=== PATIENT | female | born 1950 | race Caucasian/White ===

== ENCOUNTER 2022-07-16 15:46 | Outpatient (CLI) | payer MEDICARE, SELFPAY ==
--- NOTE | ~2022-07-16 | XR_ITS ---
EXAMINATION: XR lumbar spine 2-3V DATE: 07/16/2022 16:28 INDICATION: Chronic low back pain TECHNIQUE: Anteroposterior and lateral views of the lumbar spine, and cone-down lateral view of the l umbosacral junction were obtained. COMPARISON: None. FINDINGS: There are 3 mm of retrolisthesis of L2 on L3, 5 mm of anterolisthesis of L3 on L4, and 4 mm of anterolisthesis of L4 on L5. The vertebral body heights are maintained. There is no fracture. The re is mild to moderate loss of intervertebral disc space height throughout the lumbar spine. Small de generative osteophytes project from the anterior endplates of multiple vertebral bodies. There is sev ere facet joint osteoarthritis of the lower lumbar spine. Surgical clips in the pelvis are suggestive of pelvic lymph node dissection. Calcified atherosclerosis is noted. IMPRESSION: 1. Moderate lumbar spondylosis without acute findings. Reviewed, dictated and finalized at location B. 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
--- NOTE | ~2022-07-16 | XR_ITS ---
EXAMINATION: XR hip RT min 3V w AP pelvis INDICATION: Right hip pain TECHNIQUE: AP view the pelvis and three views of the right hip are obtained. COMPARISON: None available FINDINGS: There is advanced osteoarthritis of the right hip and moderate to severe osteoarthritis of the left hip. No fracture is identified. Surgical clips in the pelvis are consistent with pelvic lymp h node dissection. Moderate lower lumbar spondylosis is noted. IMPRESSION: 1. Advanced osteoarthritis of the right hip. Reviewed, dictated and finalized at location B. 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
== END 2022-07-16 15:47 | disposition home or self-care (01) ==
LOC: CHSIMG 15:55
PROVIDERS: PCP Physician Assistant; Visit Provider Physician Assistant
DX: M54.41 Lumbago with sciatica, right side (principal); M43.06 Spondylolysis, lumbar region; M16.11 Unilateral primary osteoarthritis, right hip
CPT/HCPCS: 72100; 73502

== ENCOUNTER 2024-01-19 14:43 | Outpatient (CLI) | payer MEDICARE, SELFPAY ==
[2024-01-19 15:15] LABS: Basophils Absolute Auto 0.03 K/mm3 (0.00-0.10); Basophils Percent Auto 0.5 % (0.0-1.0); Eosinophils Absolute Auto 0.24 K/mm3 (0.02-0.50); Eosinophils Percent Auto 3.9 % (1.0-6.0); Hematocrit 36.2 % (35.0-42.0); Hemoglobin 11.6 g/dL (11.7-13.8); Immature Granulocyte Absolute 0.03 K/mm3 (0.00-0.00); Immature Granulocyte Percent A 0.5 % (0.0-0.0); Lymphocytes Absolute Auto 1.68 K/mm3 (1.10-4.50); Lymphocytes Percent Auto 27.5 % (18.0-42.0); Mean Corpuscular Hemoglobin 28.4 pg (27.0-31.0); Mean Corpuscular Volume 88.5 fL (78.0-102.0); Mean Platelet Volume 9.7 fl (9.2-11.8); Monocytes Percent Auto 6.5 % (2.0-11.0); Neutrophils Absolute Auto 3.74 K/mm3 (1.70-7.20); Neutrophils Percent Auto 61.1 % (50.0-70.0); Platelet Count Result 267 K/mm3 (150-420); Red Blood Count 4.09 M/mm3 (4.20-5.40); Red Cell Distribution Width 13.7 % (11.6-14.4); White Blood Count 6.1 K/mm3 (4.8-10.8)
[2024-01-19 16:13] LABS: Alanine Aminotransferase 19 U/L (14-59); Albumin Level 3.2 g/dL (3.4-5.0); Alkaline Phosphatase 109 U/L (46-116); Anion Gap 9 mmol/L (4-12); Aspartate Amino Transferase 18 U/L (15-37); Bilirubin,Total 0.2 mg/dL (0.00-1.00); Blood Urea Nitrogen 19 mg/dL (7-18); Calcium 9.3 mg/dL (8.5-10.1); Carbon Dioxide 25 mmol/L (21-32); Chloride 103 mmol/L (98-108); Estimated Glomerular Filt Rate 43; Glucose 80 mg/dL (70-99); Osmolality Calculated 285 mOsm/kg (285-295); Potassium 4.6 mmol/L (3.5-5.1); Sodium 137 mmol/L (136-145); Total Protein 7.1 g/dL (6.4-8.2)
== END 2024-01-19 14:44 | disposition home or self-care (01) ==
LOC: CHSLAB 14:57
PROVIDERS: PCP Physician Assistant; Visit Provider Physician Assistant
DX: R80.8 Other proteinuria (principal); D64.9 Anemia, unspecified; N28.9 Disorder of kidney and ureter, unspecified; R07.81 Pleurodynia; R53.81 Other malaise
CPT/HCPCS: 36415; 80053; 82043; 85025

== ENCOUNTER 2024-01-20 10:50 | Outpatient (CLI) | payer MEDICARE, SELFPAY ==
[2024-01-20 11:01] LABS: Add Urine Microscopic? NO; Appearance Urine Clear (Clear); Bilirubin Urine Negative (Negative); Blood Urine Negative (Negative); Color Urine Light Yellow (Yellow); Glucose Urine UA Negative (Negative); Ketones Urine Negative (Negative); Leukocyte Esterase Ur Negative LEU/UL (Negative); Nitrate Urine Negative (Negative); Protein Urine Negative (Negative); Specific Grav Ur >= 1.030 (1.010-1.020); Urobilinogen Urine 0.2 mg/dL (0.2-1.0); pH Urine 5.5 (5.0-8.0)
[2024-01-20 11:09] LABS: Creatinine Urine 85.67 mg/dL (40-278); MALB Creatinine Ratio 15.1 mg/g (0-30); Microalbumin Urine Random < 13.0 mg/L
== END 2024-01-20 10:51 | disposition home or self-care (01) ==
PROVIDERS: PCP Physician Assistant; Visit Provider Physician Assistant
DX: R80.8 Other proteinuria (principal); D64.9 Anemia, unspecified; N28.9 Disorder of kidney and ureter, unspecified; R07.81 Pleurodynia; R53.81 Other malaise
CPT/HCPCS: 81003; 82043

== ENCOUNTER 2024-09-21 10:16 | Outpatient (CLI) | payer MEDICARE, SELFPAY ==
[2024-09-21 10:30] LABS: Basophils Absolute Auto 0.03 K/mm3 (0.00-0.10); Basophils Percent Auto 0.4 % (0.0-1.0); Eosinophils Absolute Auto 0.25 K/mm3 (0.02-0.50); Eosinophils Percent Auto 3.6 % (1.0-6.0); Hematocrit 37.4 % (35.0-42.0); Hemoglobin 11.5 g/dL (11.7-13.8); Immature Granulocyte Absolute 0.02 K/mm3 (0.00-0.00); Immature Granulocyte Percent A 0.3 % (0.0-0.0); Lymphocytes Percent Auto 21.8 % (18.0-42.0); Mean Corpuscular HGB Conc 30.7 g/dL (32-36); Mean Corpuscular Hemoglobin 28.1 pg (27.0-31.0); Mean Corpuscular Volume 91.4 fL (78.0-102.0); Mean Platelet Volume 9.4 fl (9.2-11.8); Monocytes Absolute Auto 0.68 K/mm3 (0.10-0.90); Monocytes Percent Auto 9.9 % (2.0-11.0); Neutrophils Absolute Auto 4.39 K/mm3 (1.70-7.20); Platelet Count Result 212 K/mm3 (150-420); Red Blood Count 4.09 M/mm3 (4.20-5.40); Red Cell Distribution Width 13.5 % (11.6-14.4); White Blood Count 6.9 K/mm3 (4.8-10.8)
[2024-09-21 11:17] LABS: Alanine Aminotransferase 13 U/L (14-59); Albumin Level 3.1 g/dL (3.4-5.0); Alkaline Phosphatase 114 U/L (46-116); Anion Gap 9 mmol/L (4-12); Aspartate Amino Transferase 14 U/L (15-37); Bilirubin,Total 0.3 mg/dL (0.00-1.00); Blood Urea Nitrogen 15 mg/dL (7-18); Calcium 8.7 mg/dL (8.5-10.1); Carbon Dioxide 25 mmol/L (21-32); Chloride 106 mmol/L (98-108); Estimated Glomerular Filt Rate 36; Folic Acid > 20.0 ng/mL (8.6->20); Glucose 85 mg/dL (70-99); Iron 92 ug/dL (50-170); Osmolality Calculated 289 mOsm/kg (285-295); Percent Iron Saturation 29 % (12-57); Potassium 4.4 mmol/L (3.5-5.1); Sodium 140 mmol/L (136-145); Thyroid Stimulating Hormone 5.59 uIU/mL (0.36-3.74); Total Protein 7.3 g/dL (6.4-8.2); Vitamin B12 353 pg/mL (193-986)
--- OUTSIDE RECORDS SUMMARY | 2024-09-21 11:47 | XMS_ITS | Encounter Summary ---
Author Organization [facility] Address [address] [place] [address] Phone Care Team Providers Care Wooling Machine Operator Name Role Phone No, Physician Primary Care Provider Slade Guerin MD Unavailable [phone] Mina Shaver MD Unavailable [phone] Jovita Puente Primary Care Provider [phone] Encounter Details Date Type Department Care Team (Late st Contact Info) Description 09/10/2017 Orders Only [facility] [address] [place] [address] Slade Guerin MD [address] [address] Social History Tobacco Use Types Packs/Day Years Used Date Smoking Tobacco: Some Days Smokeless Tobacco: Never Alcohol Use Standard Drinks/Week Comments No 0 (1 standard drink = 0.6 oz pur e alcohol) Comments No Sex and Gender Information Value Date Recorded Sex Assigned at Not on file 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 Gender Identity Not on file Sexual Orientation Not on file documented as of this encounter Plan of Treatment Not on file documented as of this encounter Procedures Procedure Name Priority Date/Time Associated Diagnosis Comments SCAN - LABS 09/10/2017 3:07 PM CDT documented in this encounter Results * SCAN - LABS (09/10/2017 3:07 PM CDT) us Slade Guerin MD Final Result documented in this encounter Visit Diagnoses Not on filedocumented in this encounter Care Teams Wooling Machine Operator Relationship Specialty Start Date End Date No, Physician PCP - General 08/25/17 11/30/22 Jovita Puente PA [address] [place] [id number] PCP - General Emergency Medicine 12/01/22 Slade Guerin MD Consulting Physician Infectious Diseases 09/01/17 Mina Shaver MD [address], [place] [address] Surgeon Orthopedic Surgery 11/04/22 documented as of this encounter
--- OUTSIDE RECORDS SUMMARY | 2024-09-21 11:47 | XMS_ITS | Clinical Summary ---
Author Organization [facility] Address [address] [place] [address] Care Team Providers Care Fleet Assistant Name Role Phone Slade Guerin MD Unavailable [phone] Mina Shaver MD Unavailable [phone] Jovita Puente Primary Care Provider [phone] Allergies Active Allergy Reactions Criticality Noted Date Comments Doxycycline Other (See comments) Low 08/25/2017 Kidney pain Iodine Blisters High 01/25/2018 Medications cyclobenzaprine (FLEXERIL) 10 mg tablet Take 1 tablet (10 mg total) by mouth 2 (two) times a day as needed (for legs) Patient reports she is taking once daily 3 Active escitalopram (LEXAPRO) 10 mg tablet Take 1 tablet (10 mg total) by mouth daily 3 Active mirtazapine (REMERON) 7.5 mg tablet Take 1 tablet (7.5 mg total) by mouth nightly 3 Active Narcan 4 mg/actuation spray,non-aeroso l 0 3 Active lmklzdlj-gdv-qtw ic acid-biotin 66.7-1,000 mcg tablet Take 1 tablet/chew tab by mouth daily Active ferrous sulfate 325 mg (65 mg of elemental iron) tabletIndication s:Iron Deficiency Anemia Take 1 tablet (325 mg total) by mouth daily with breakfast Active nitrofurantoin monohydrate (MACROBID) 100 mg capsule Take 1 capsule (100 mg total) by mouth 2 (two) times a day 4 Active diphenoxylate-at ropine (LOMOTIL) 2.5-0.025 mg per tabletIndication s:diarrhea Take 1 tablet by mouth 2 (two) times a day 30 tablet 3 4 Active loperamide (IMODIUM) 2 mg capsule Take 1 capsule (2 mg total) by mouth 4 (four) times a day as needed for diarrhea Taking 8 capsules per day Active gabapentin (NEURONTIN) 400 mg capsule TAKE 1 CAPSULE BY MOUTH THREE TIMES A DAY NEEDED [address] (PROTONIX) 40 mg EC tablet TAKE 1 TABLET BY MOUTH EVERY DAY FOR GERD 4 Active traMADoL (ULTRAM) 50 mg tablet Take by mouth 3 (three) times a day as needed 4 Active Active Problems Problem Noted Date Diagnosed Date Hydronephrosis 05/09/2023 S/P laparoscopic-assisted sigmoidectomy 12/17/19 23 Assessment & Plan (06/10/2023 11:16 AM FIELD SPEC): Over the past few days she was tried a new regimen of paste in tape which seems to have controlled the appliance from falling off and leaking significantly better. She is had years and years of diarrhea which has always been difficult for her to control. We will try to see if we can slow down the stool a little bit if that helps with keeping it off of the skin. Given everything that she is had done in the past I would really like to try and avoid any kind of revision of the ostomy if possible. I am going to see if there is any help with regards to people who could look at some complex stomas to offer her some other thoughts. She is in understanding of the plan. Assessment & Plan (02/20/2023 11:46 AM CDT): Patient will continue diet as tolerates. Continue local ostomy care. Given the overall radiation changes to the pelvis I had initially discussed with her this being likely a more permanent solution. However if she wants to consider reversal I would like to wait at least a year to allow everything that she had going on to heal. She is in understanding. She will call us back for anything further that she would need. Assessment & Plan (12/27/2022 3:57 PM CDT): She continues to progress as I would expect. Continue to encourage p.o. intake. Continue local ostomy care. She is an upcoming cystogram January 01 so hopefully the Ybarra will be removed at that time. We will see her back in a month. Assessment & Plan (12/19/2022 11:40 AM CDT): We will remove the JACQUE drain at bedside today. Continue local ostomy care. We will remove the majority of her midline lizeth as well. We will follow up with Urology to figure out when they want to do the cystogram as well as remove her stents. We will see her back next week to remove the remaining lizeth. She will call us sooner if anything changes. 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 Continue to work with different ostomy appliances to see if they can find a better fitting 1 to limit the skin excoriation. Diet as tolerated. Activity unrestricted. Patient will call us back with any further questions or concerns Assessment & Plan (01/23/2023 10:42 AM CDT): With a better fit appliance hopefully some of the excoriation of the skin and discomfort will improve. Her primary care semi some new labs with her hemoglobin still in the mid sevens. This has been unchanged for the last several draws. It is possible that given the stress of everything it is just taking a while for her to replete her stores. I however will make a referral to hematology to see if they have any other thoughts for the persistent anemia. There is no blood coming from the ostomy appliance so I am not concerned that she is any kind of GI bleed as she was recently scoped as well. We will see her back in 1 month to reassess. History of cervical cancer 12/02/2022 Chronic radiation proctitis 12/02/2022 Depression 12/02/2022 Hydroureteronephrosis 12/02/2022 Abnormal EKG 10/31/2022 Hypertension 10/31/2022 Primary osteoarthritis of right hip 10/17/2022 Bilateral primary osteoarthritis of hip 08/07/19 Cellulitis of leg, right 08/26/2017 Assessment & Plan (09/12/2017 10:36 AM CDT): She was in the hospital with acute cellulitis of the right leg. She responded to IV antibiotics. She is wearing tight jeans and support hose which she normally does because of chronic lymphedema from her pelvic lymph node dissection for cervical cancer many years ago. She did bring in a picture on her phone showing that everything is back to her baseline with chronic lymphedema and minimal erythema. She can follow up here as needed for this problem, otherwise follow-up with primary care. Assessment & Plan (08/29/2017 7:27 PM CDT): The right leg cellulitis appears significantly improved. Continue current therapy. Assessment & Plan (08/26/2017 5:44 AM CDT): Rapidly progressive, likely strep. Responding to cefazolin. Will continue. Blood cultures are in process. Continue to monitor. Hemodynamically stable. P.r.n. Tylenol for fever. Lower extremity Dopplers were ordered to rule out DVT although I suspect it is likely just cellulitis. Will place patient on prophylactic dosing of Lovenox. Chronic acquired lymphedema 08/26/2017 Assessment & Plan (08/26/2017 5:34 AM CDT): Secondary to lymph node dissection from cervical cancer. Stable. Patient wears compression stockings. Cellulitis of right leg without foot Lymphedema of both lower extremities Resolved Problems Problem Noted Date Diagnosed Date Resolved Date Staphylococcus aureus bacteremia 08/25/2017 01/25/2018 Assessment & Plan (09/27/2017 9:45 AM CDT): She had transient associated bacteremia due to methicillin sensitive Staph aureus. Only one of multiple blood cultures was positive. Transthoracic echocardiogram was negative for vegetations. She received two weeks of IV nafcillin which she tolerated well. She had no rash. 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 She controls it with Imodium. If the diarrhea does not return to baseline, we will need to check for C difficile. I would also like her to follow up promptly for any recurrence of fever or chills. 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 She will be in touch with me as needed. Otherwise I think we can consider her treatment complete. Assessment & Plan (09/01/2017 8:40 AM CDT): The second blood culture from admission remains negative. The follow-up blood cultures on antibiotics remain negative. I originally had the impression that 2/2 blood cultures were positive which would be more worrisome for endovascular infection. Her transthoracic echocardiogram was negative, so we will not pursue a transesophageal echocardiogram and, we can continue with plans for two weeks of IV nafcillin. All of this was discussed with the patient. She should follow up with me in the office in about 2 weeks. Sepsis 01/25/2018 Surgical History Surgery Date Site/Laterality Comments HYSTERECTOMY total PELVIC AND PARA-AORTIC LYMPH NODE DISSECTION 06/02/1992 - 06/01/1993 For cervical cancer. COLONOSCOPY JOINT REPLACEMENT 11/04/2022 Right hip BOWEL RESECTION 12/06/2022 with colostomy BLADDER REPAIR 12/06/2022 Medical History Medical History Date Comments Arthritis Cervical cancer (HCC) 1992 Status pos t surgical resection, lymph node dissection, and radiation therapy. 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 Obesity Chronic acquired lymphedema 1992 Cont rolled with leg wraps and lymphedema pumps. Cellulitis of right leg 07/2017 Hypertension Anemia History of stomach ulcers Family History Medical History Relation Name Comments Arthritis Father Heart disease Father Cancer Mother Relation Name Status Comments Father Mother Social History Tobacco Use Types Packs/Day Years Used Date Smoking Tobacco: Former Cigarettes Smokeless Tobacco: Never Tobacco Cessation:Counseling Given: Not Answered Alcohol Use Standard Drinks/Week Comments Yes 0 (1 standard drink = 0.6 oz pur e alcohol) Social Connection and Isolat ion Panel [NHANES] Answer Date Recorded In a typical week, how many times do you talk on the phone with family, friends, or neighbors? More than three times a week 12/02/2022 How often do you get togethe r with friends or relatives? Once a week 12/02/2022 How often do you attend chur ch or cheondoism services? Never 12/02/2022 Do you belong to any clubs o r organizations such as orthodoxy groups, unions, fraternal or athletic groups, or school groups? No 12/02/2022 How often do you attend meet ings of the clubs or organizations you belong to? Never 12/02/2022 Are you , , di vorced, , never , or living with a partner? Never 12/02/2022 AUDIT-C Answer Date Recorded Q1: How often do you have a drink containing alcohol? Never 10/14/2023 Q2: How many drinks containi ng alcohol do you have on a typical day when you are drinking? Patient does not drink Frequency of Binge Drinking Not on file 09/30 Overall Financial Resource Strain (CARDIA) Answe r Date Recorded How hard is it for you to pa y for the very basics like food, housing, medical care, and heating? Not very hard 12/02/2022 Hunger Vital Sign Answer Date Recorded Within the past 12 months, y ou worried that your food would run out before you got the money to buy more. Never true 07/22/19 24 Within the past 12 months, t he food you bought just didn't last and you didn't have money to get more. Never true 07/22/2023 PRAPARE - Transportation Answer Date Re corded In the past 12 months, has l ack of transportation kept you from medical appointments or from getting medications? No 07/2022 In the past 12 months, has l ack of transportation kept you from meetings, work, or from getting things needed for daily living? No 12/02/2022 Housing Stability Vital Sign Answer Marcus e Recorded In the last 12 months, was t here a time when you were not able to pay the mortgage or rent on time? No 12/02/2022 In the last 12 months, how many places have you lived? 2 12/02/2022 In the last 12 months, was t here a time when you did not have a steady place to sleep or slept in a chcf (including now)? No 12/02/2022 Personal Safety Answer Date Recorded Have you ever been in or are you currently in a harmful physical or emotional relationship or is someone making you feel afraid or unsafe? Denies 06/11/2023 Comments No Sex and Gender Information Value Date Recorded Sex Assigned at Not on file Legal Sex Female 6:16 PM FIELD SPEC Gender Identity Not on file Sexual Orientation Not on file Obstetrics History Last Filed Vital Signs Vital Sign Reading Time Taken Comments Blood Pressure 155/102 12/09/2023 10:40 AM CDT Pulse 82 04/13/2024 11:45 AM FIELD SPEC Temperature 36.3 C (97.4 F) 04/13/2024 11:45 AM FIELD SPEC Respiratory Rate 20 04/13/2024 11:4 5 AM FIELD SPEC Oxygen Saturation 99% 04/13/2024 11: 45 AM FIELD SPEC Inhaled Oxygen Concentration - - Weight 84.7 kg (186 lb 12.8 oz) 024 11:45 AM FIELD SPEC Height 165.1 cm (5' 5 ) 04/13/2024 11:4 5 AM FIELD SPEC Body Mass Index 31.09 04/13/2024 11:45 AM FIELD SPEC Plan of Treatment Health Maintenance Due Date Last Done Comments Breast Cancer Screening-Mammogram 1950 Depression Screening 1950 Hepatitis C Screening 1950 Osteoporosis Screening-Bone Density Scan 1950 DTaP/Tdap/Td Vaccine (1 - Tdap) 1963 Hepatitis B Screening 1970 Pneumococcal vaccine 65+ (1 of 1 - PCV) 2002 Zoster Vaccine (1 of 2) 2002 Well Visit 65+ 2017 Fall Risk Assessment 12/15/2023 12/14/2022 Influenza Vaccine (#1) 2024 Colon Cancer Screening-Colonoscopy 12/04/20322022 Colon Cancer Screening-CT Colonography Discontinued Colon Cancer Screening-DNA Stool Discontinued 12/05/19 Colon Cancer Screening-FIT Discontinued 12/04/2022 Colon Cancer Screening-Sigmoidoscopy Discontinued 09/2022 Medical Devices Implanted Type Area Gyroscopic Engineering Technician Device Identifier Shelf Expiration Date Model / Serial / Lot Dep Orthopaedics [facility] [place] 54mm Sector Hip Shell Acetabular Gription Sterile Latex Free [id number] - [id number] Implanted:Qty: 1 on 11/04/2022 by Mina Shaver MD at [facility] Right: Hip [employer] [id number] 07/30/2032 [id number] / / [id number] [employer] [place] 6.5mm 35mm Acetabular Cancellous Screw Bone Sterile 1217-35-500 - [id number] Implanted:Qty: 1 on 11/04/2022 by Mina Shaver MD at [facility] Right: Hip [employer] [id number] 06/01/2032 1217-35-500 / / [id number] [employer] [place] 54mm 36mm Hip Neutral Liner Acetabular Altrx Sterile Latex Free [id number] - [id number] Implanted:Qty: 1 on 11/04/2022 by Mina Shaver MD at [facility] Right: Hip [employer] [id number] 07/01/2027 [id number] / / [id number] [employer] Actis 105mm Collar Hip 5 High Offset Stem Femoral [id number] - [id number] Implanted:Qty: 1 on 11/04/2022 by Mina Shaver MD at [facility] Right: Hip [employer] [id number] 06/01/2032 [id number] / / [id number] [employer] Articul/Branden 36mm Cementless Hip +5mm 12/14 Taper Head Femoral Latex Free [id number] - [id number] Implanted:Qty: 1 on 11/04/2022 by Mina Shaver MD at [facility] Right: Hip [employer] [id number] 07/31/2027 [id number] / / [id number] [employer] [place] Contour Vl 6fr 22-30cm Large Inner Lumen Low Profile Bladder Js Latex Free [id number] - [id number] Implanted:Qty: 1 on 12/02/2022 by Kay Cunningham MD at [facility] Right: Urethra [employer] [place] [id number] 08/22/2025 [id number] / / [id number] [employer] [place] Contour Vl 6fr 22-30cm Large Inner Lumen Low Profile Bladder Js Latex Free [id number] - [id number] Implanted:Qty: 1 on 12/02/2022 by Kay Cunningham MD at [facility] Right: Urethra [employer] [place] [id number] 10/08/2025 [id number] / / [id number] [employer] [place] Contour 7fr 28cm Large Inner Lumen Low Profile Bladder Js Taper Latex Free 180-234 - [id number] Implanted:Qty: 1 on 06/11/2023 by Kay Cunningham MD at [facility] Right: Ureter [employer] [place] 08/28/2025 [id number] / / [id number] Explanted Type Area Gyroscopic Engineering Technician Device Identifier Shelf Expiration Date Model / Serial / Lot [employer] [place] Contour 7fr 28cm Large Inner Lumen Low Profile Bladder Js Taper Latex Free 180-234 - [id number] Explanted:Qty: 1 on 12/02/2022 at [facility] Right: Urethra [employer] [place] [id number] 09/25/2024 [id number] / / [id number] Procedures Procedure Name Priority Date/Time Associated Diagnosis Comments COLONOSCOPY 12/04/2022 12:03 PM CDT from Last 3 Months or Most Recently Relevant to Health Maintenance Results * COLONOSCOPY (12/04/2022 12:03 PM CDT) Anatomical Region Laterality Modality Other Narrative Procedure Note Edward Hood MD - 12/04/2022 12:03 PM CDT [facility] Patient Name: Sandy Reddy Procedure Date: 12/04/2022 12:03 PM Date of : 1950 Admit Type: Inpatient Age: 72 Gender: Female Attending MD: Edward Hood M.D. Room: [facility] 1 Note Status: Finalized Patient Profile: This is a 72 year old female. Patient admitted with the colovesical fistula. Never had colonoscopy. Attempt for colonoscopy. Patient has issues with chronic constipation. Procedure: Colonoscopy Indications: This is the patient's first colonoscopy, AbnormalCT of the GI tract Referring MD: Jovita Puente Providers: Edward Hood M.D. Impression: - Sharp angulation and fixation and fibrotic thickening of the rectum and distal sigmoidcolon. - Otherwise unremarkable limited colonoscopy to the distal transverse colon with no mass lesions notedin the left side of the colon. - No specimens collected. Recommendation: - Continue present medications. - Patient will need full colonoscopy proper colon preparation after repair and surgery for the colovesical fistula - Repeat colonoscopy in 1 year for screeningpurposes. Medicines: Monitored Anesthesia Care Complications: No immediate complications. Estimated Blood Loss: Estimated blood loss: none. Procedure: Pre-Anesthesia Assessment: - Prior to the procedure, a History and Physicalwas performed, and patient medications and allergieswere reviewed. The patient's tolerance of previous anesthesia was also reviewed. The risks andbenefits of the procedure and the sedation options and risks were discussed with the patient. All questions were answered, and informed consent was obtained. Prior Anticoagulants: The patient has taken noanticoagulant or antiplatelet agents. ASA Grade Assessment: III -A patient with severe systemic disease. Afterreviewing the risks and benefits, the patient was deemed in satisfactory condition to undergo the procedure. The benefits, risks and alternatives of theprocedure and sedation were discussed and informed consentwas obtained. All questions were answered. Please referto the signed informed consent document in the medical record. The bowel preparation used was Miralax via single dose instruction. The scope was passed under direct vision. The Endoscope [id number] was introduced through the anus and advanced to the the transverse colon. The scope was passed under direct vision. The Infrared hemorrhoid furniture delivery driver [id number] was introduced through the and advanced tothe. The benefits, risks and alternatives of theprocedure and sedation were discussed and informed consentwas obtained. All questions were answered. Please referto the signed informed consent document in the medical record. The quality of the bowel preparation was inadequate. Bowel prep was administered using asplit dose. Findings: The perianal and digital rectal examinations were normal. Hardimpacted solid stool was encountered in the rectum and this was manually disimpacted and removed The scope introduced and advanced to the transverse colon. Colon preparation was inadequate as we go proximally in the colon. Theentire visualized part of the colon were unremarkable. No diverticularchanges noted. No inflammatory changes noted. No polyps and no mass lesions noted. There was sharp angulation and fixation in the distal sigmoid colon in the rectal sigmoid area likely from her previous radiation treatment. The rectal wall was also hard fibrotic. Electronically signed by Edward Hood M.D. Edward Hood M.D. 12/04/2022 1:22:40 PM Number of Addenda: 0 Note Initiated On: 12/04/2022 12:03 PM Procedure Code(s): --- Professional --- 28197, Colonoscopy, flexible; diagnostic, including collection of specimen(s) by brushing or washing, when performed (separateprocedure) Diagnosis Code(s): --- Professional --- R93.3, Abnormal findings on diagnostic imaging of other parts of digestive tract CPT copyright 2020 [employer]. All rights reserved. The codes documented in this report are preliminary and upon recovery room rn reviewmay be revised to meet current compliance requirements. Recognized by the [employer] [employer] for promoting quality in endoscopy Edward Hood MD ENDOSCOPY PROCEDURES Final Result from Last 3 Months or Most Recently Relevant to Health Maintenance Insurance MEDICARE [employer] [place] [employer] [place] [employer] [place] MEDICARE SUPPLEMENT MEDICARE [facility] MEDICARE SUPPLEMENT Advance Directives For more information, please contact: [phone] * Full Code (Latest Code Status on File) Date Activated Date Inactivated Comments 12/04/2022 11:52 AM 12/14/2022 8:18 PM * Full Code Date Activated Date Inactivated Comments 12/02/2022 1:31 AM 12/04/2022 11:52 AM * Full Code Date Activated Date Inactivated Comments 11/04/2022 11:57 AM 11/04/2022 8:16 PM * Full Code Date Activated Date Inactivated Comments 01/25/2018 1:08 PM 01/26/2018 4:50 PM * Full Code Date Activated Date Inactivated Comments 08/26/2017 5:33 AM 09/01/2017 10:32 PM Care Teams Fleet Assistant Relationship Specialty Start Date End Date Jovita Puente PA [address] [place] [address] PCP - General Emergency Medicine 12/01/22 Slade Guerin MD Consulting Physician Infectious Diseases 09/01/17 Mina Shaver MD [address] [place] [address] DR FAM [address] [place] [id number] Surgeon Orthopedic Surgery 11/04/22
--- OUTSIDE RECORDS SUMMARY | 2024-09-21 11:47 | XMS_ITS | Referral Summary ---
Author Organization [facility] Address [address] [place] [address] Care Team Providers Care Slab Installer Name Role Phone Slade Guerin MD Unavailable [phone] Mina Shaver MD Unavailable [phone] Jovita Puente Primary Care Provider [phone] Allergies Active Allergy Reactions Criticality Noted Date [...] 4 mg/actuation spray,non-aeroso l 0 3 Active nfspbinq-oou-tpe ic acid-biotin 66.7-1,000 mcg tablet Take 1 [...] 23 Assessment & Plan (06/10/2023 11:16 AM HOSPICE PLAN ADMINISTRATOR): Over the past few days she was [...] office in about 2 weeks. Sepsis 01/25/2018 Social History Tobacco Use Types Packs/Day Years [...] 12/02/2022 How often do you attend [employer] or oriental orthodox services? Never 12/02/2022 Do you belong to any clubs o r organizations such as synagogue groups, unions, fraternal or athletic groups, or [...] place to sleep or slept in a retirement (including now)? No 12/02/2022 Personal Safety Answer Date Recorded Have you ever been in or are you currently in a harmful physical or emotional relationship or is someone making you feel afraid or unsafe? Denies 06/11/2023 Comments No Sex and Gender Information Value Date Recorded Sex Assigned at Not on file Legal Sex Female 6:16 PM HOSPICE PLAN ADMINISTRATOR Gender Identity Not on file Sexual Orientation Not on file Last Filed Vital Signs Vital Sign Reading Time Taken Comments Blood Pressure 155/102 12/09/2023 10:40 AM CDT Pulse 82 04/13/2024 11:45 AM HOSPICE PLAN ADMINISTRATOR Temperature 36.3 C (97.4 F) 04/13/2024 11:45 AM HOSPICE PLAN ADMINISTRATOR Respiratory Rate 20 04/13/2024 11:4 5 AM HOSPICE PLAN ADMINISTRATOR Oxygen Saturation 99% 04/13/2024 11: 45 AM HOSPICE PLAN ADMINISTRATOR Inhaled Oxygen Concentration - - Weight 84.7 kg (186 lb 12.8 oz) 024 11:45 AM HOSPICE PLAN ADMINISTRATOR Height 165.1 cm (5' 5 ) 04/13/2024 11:4 5 AM HOSPICE PLAN ADMINISTRATOR Body Mass Index 31.09 04/13/2024 11:45 AM HOSPICE PLAN ADMINISTRATOR Plan of Treatment Not on file Medical Devices Implanted Type Area Cook Cashier Food Prep Device Identifier Shelf Expiration Date Model / Serial / Lot [employer] [place] 54mm Sector Hip Shell Acetabular Gription Sterile Latex Free [id number] - [id number] Implanted:Qty: 1 on 11/04/2022 by Mina Shaver MD at [facility] Right: Hip [employer] [id number] 07/30/2032 [id number] / / [id number] [employer] [place] 6.5mm 35mm Acetabular Cancellous Screw Bone Sterile 1217-35-500 - [id number] Implanted:Qty: 1 on 11/04/2022 by Mina Shaver MD at [facility] Right: Hip [employer] [id number] 06/01/2032 1217-35-500 / / [id number] [employer] [place] 54mm 36mm Hip Neutral Liner Acetabular Altrx Sterile Latex Free [id number] - [id number] Implanted:Qty: 1 on 11/04/2022 by Mina Shaver MD at [facility] Right: Hip [employer] [id number] 07/01/2027 [id number] / / [id number] [employer] Actis 105mm Collar Hip 5 High Offset Stem Femoral [id number] - [id number] Implanted:Qty: 1 on 11/04/2022 by Mina Shaver MD at [facility] Right: Hip [employer] [id number] 06/01/2032 [id number] / / [id number] [employer] Articul/Branden 36mm Cementless Hip +5mm 05/15 Taper Head Femoral Latex Free [id number] - [id number] Implanted:Qty: 1 on 11/04/2022 by Mina Shaver MD at [facility] Right: Hip [employer] [id number] 07/31/2027 [id number] / / [id number] [employer] [place] Contour Vl 6fr 22-30cm Large Inner Lumen Low Profile Bladder Js Latex Free [id number] - [id number] Implanted:Qty: 1 on 12/02/2022 by Kay Cunningham MD at [facility] Right: Urethra [employer] [place] [id number] 08/22/2025 [id number] / / [id number] [employer] Francisco Contour Vl 6fr 22-30cm Large Inner Lumen Low Profile Bladder Js Latex Free [id number] - [id number] Implanted:Qty: 1 on 12/02/2022 by Kay Cunningham MD at [facility] Right: Urethra [employer] [place] [id number] 10/08/2025 [id number] / / [id number] [employer] Francisco Contour 7fr 28cm Large Inner Lumen Low Profile Bladder Js Taper Latex Free 180-234 - [id number] Implanted:Qty: 1 on 06/11/2023 by Kay Cunningham MD at [facility] Right: Ureter [employer] Francisco 08/28/2025 [id number] / / [id number] Explanted Type Area Cook Cashier Food Prep Device Identifier Shelf Expiration Date Model / Serial / Lot [employer] Francisco Contour 7fr 28cm Large Inner Lumen Low Profile Bladder Js Taper Latex Free 180-234 - [id number] Explanted:Qty: 1 on 12/02/2022 at [facility] Right: Urethra [employer] [id number] 09/25/2024 [id number] / / [id number] Procedures Procedure Name Priority Date/Time Associated Diagnosis Comments COLONOSCOPY 12/04/2022 12:03 PM CDT from Last 3 Months or Most Recently Relevant to Health Maintenance Results * COLONOSCOPY (12/04/2022 12:03 PM CDT) Anatomical Region Laterality Modality Other Narrative Procedure Note Edward Hood MD - 12/04/2022 12:03 PM CDT [facility] Patient Name: Sandy Saenz Procedure Date: 12/04/2022 12:03 PM Date of : 1950 Admit Type: Inpatient Age: 72 Gender: Female Attending MD: Edward Hood M.D. Room: [facility] ENDOSCOPY ROOM 1 Note Status: Finalized Patient [...] passed under direct vision. The Endoscope [id number] was introduced through the anus and advanced to the the transverse colon. The scope was passed under direct vision. The Infrared hemorrhoid global sales manager [id number] was introduced through the and advanced tothe. [...] 12:03 PM Procedure Code(s): --- Professional --- 00777, Colonoscopy, flexible; diagnostic, including collection of specimen(s) by brushing or washing, when performed (separateprocedure) Diagnosis Code(s): --- Professional --- R93.3, Abnormal findings on diagnostic imaging of other parts of digestive tract CPT copyright 2020 [place] [employer]. All rights reserved. The codes documented in this report are preliminary and upon senior materials analyst reviewmay be revised to meet current compliance requirements. Recognized by the [place] [employer]astrointestinal [employer] for promoting quality in endoscopy Edward Hood MD ENDOSCOPY PROCEDURES Final Result from Last 3 Months or Most Recently Relevant to Health Maintenance Insurance MEDICARE [facility] MEDICARE [facility] MEDICARE SUPPLEMENT MEDICARE [facility] MEDICARE SUPPLEMENT Advance Directives For more information, please contact: [phone] * Full Code (Latest Code Status on [...] 5:33 AM 09/01/2017 10:32 PM Care Teams Slab Installer Relationship Specialty Start Date End Date Jovita Puente PA [address] [place] [address] PCP - General Emergency Medicine 12/01/22 Slade Guerin MD Consulting Physician Infectious Diseases 09/01/17 Mina Shaver MD [address] [facility] [address] FAM [address] [place] [address] Surgeon Orthopedic Surgery 11/04/22
--- OUTSIDE RECORDS SUMMARY | 2024-09-21 11:47 | XMS_ITS ---
Author Organization Unknown Address [address] [place] [phone] Phone Care Team Providers Care Retirement Assistant Name Role Phone CARLOS ALBERTO HUSTON PA-C Attending Unavailable Results CBC W/ DIFF - Collect Date/T milena: 01/15/2024 11:00 [facility] ID: [id number] [place] [address], [phone] LOINC: 08640-3 Test Value Unit Reference Range Code Code System Flag WBC 12.6 10^3uL L=4.8 H=10.8 H RBC 4.14 10^6uL L=4.20 H=5.40 L HEMOGLOBIN 11.5 g/dL L=12.0 H=16.0 718-7 LOINC L HEMATOCRIT 37.4 VOL% L=37.0 H=47.0 4544-3 LOINC MCV 90.3 fL L=81.0 H=99.0 MCH 27.8 pg L=27.0 H=32.0 MCHC 30.7 g/dL L=32.0 H=36.0 L PLATELETS 248 10^3uL L=100 H=400 19294-6 LOINC RDW 13.9 % L=11.7 H=15.5 %GRAN 80.9 % L=40.0 H=70.0 55412-8 LOINC H %LYMPH 10.4 % L=20.0 H=45.0 736-9 LOINC L %MONO 6.5 % L=2.0 H=10.0 35502-3 LOINC %EOS 1.6 % L=0.0 H=6.0 713-8 LOINC %BASO 0.2 % L=0.0 H=3.0 706-2 LOINC #NEUT 10.2 10^3uL L=1.9 H=7.6 98951-6 LOINC H #LYMPH 1.3 10^3uL L=0.9 H=4.9 76508-2 LOINC #MONO 0.8 10^3uL L=0.1 H=0.9 29255-3 LOINC #EOS 0.2 10^3uL L=0.0 H=0.6 712-0 LOINC #BASO 0.03 10^3uL L=0.00 H=0.10 59507-3 LOINC #IM GRANS 0.1 10^3uL L=0.0 H=7.0 22625-3 LOINC %IM GRANS 0.4 % L=0.0 H=5.0 76225-8 LOINC %NRB 0.0 L=0.0 H=0.2 71194-6 LOINC #NRB 0.000 L=0.000 H=0.012 48011-3 LOINC MANUAL DIFF NOT INDICATED RBC MORPH NOT INDICATED COMPREHENSIVE METABOLIC PANE L - Collect Date/Time: 01/15/2024 11:00 [facility] ID: [id number] [address] [place], [place], [phone] LOINC: 68359-8 Test Value Unit Reference Range Code Code System Flag FASTING YES BUN 20 mg/dL L=7 H=20 3094-0 LOINC CREATININE 1.20 mg/dL L=0.52 H=1.04 2160-0 LOINC H GLUCOSE 99 mg/dL L=74 H=106 2345-7 LOINC SODIUM 138 mmol/L L=132 H=144 2951-2 LOINC POTASSIUM 4.2 mmol/L L=3.5 H=5.1 2823-3 LOINC CHLORIDE 105 mmol/L L=98 H=107 2075-0 LOINC CO2 22.0 mmol/L L=22.0 H=30.0 2028-9 LOINC ANION GAP 15 L=10 H=20 40136-3 LOINC OSMOLALITY 289 mOs/kG L=280 H=296 16734-1 LOINC BUN/CREAT 16.7 3097-3 LOINC CALCIUM 9.7 mg/dL L=8.3 H=10.5 79945-0 LOINC AST 24 U/L L=15 H=46 1920-8 LOINC ALT 17 U/L L=9 H=72 1742-6 LOINC ALKALINE PHOS 96 U/L L=38 H=126 6768-6 LOINC TOTAL BILI 0.5 mg/dL L=0.2 H=1.3 1975-2 LOINC ALBUMIN 4.4 G/dL L=3.5 H=5.0 1751-7 LOINC TOTAL PROTEIN 8.5 g/L L=6.3 H=8.2 2885-2 LOINC H A/G RATIO 1.1 03635-0 LOINC AGE 73 65839-3 LOINC eGFR NON-AFR 47 ml/min eGFR AFR AMER 57 ml/min VITAMIN B-12 - Collect Date/ Time: 01/15/2024 11:00 [facility] ID: [id number] [address] [place] [address], [phone] LOINC: 2132-9 Test Value Unit Reference Range Code Code System Flag VITAMIN B12 504 pq/mL L=239 H=931 FOLIC ACID (SERUM) - Collect Date/Time: 01/15/2024 11:00 [facility] ID: [id number] [address] [place] [address], [phone] LOINC: 2284-8 Test Value Unit Reference Range Code Code System Flag FOLATE 19.6 ng/mL L=2.7 H=20.0 2284-8 LOINC IRON PANEL - Collect Date/Ti me: 01/15/2024 11:00 [facility] ID: [id number] [address] [place] [address], [phone] LOINC: Test Value Unit Reference Range Code Code System Flag IRON 74 ug/dL L=37 H=170 2498-4 LOINC TIBC 354 ug/dL L=265 H=497 2500-7 LOINC %SATURATION 21 % L=13 H=45 2708-6 LOINC FERRITIN - Collect Date/Time : 01/15/2024 11:00 [facility] ID: [id number] [address] [place] [address], [phone] LOINC: 2276-4 Test Value Unit Reference Range Code Code System Flag FERRITIN 31.4 ng/mL L=11.1 H=264 2276-4 LOINC 25 HYDROXY VITAMIN D - Colle ct Date/Time: 01/15/2024 11:00 [facility] ID: [id number] [address] [place] [address], [phone] LOINC: Test Value Unit Reference Range Code Code System Flag VITAMIN D 30.5 ng/ml L=30.0 H=100 83609-7 LOINC THYROID CASCADE PROFILE REF - Collect Date/Time: 01/15/2024 11:00 [facility] ID: [id number] [address] [place] [address], [phone] LOINC: 03032-4 Test Value Unit Reference Range Code Code System Flag TSH 6.230 0.450-4.500 42277-0 LOINC H T4,Free (Direct) 0.95 0.82-1.77 3024-7 LOINC Thyroid Peroxidase (TPO)Ab 285 0-34 8099-4 LOINC H Interpretive Comment COMMENT CHEST 2V - Completed: 2023 11:13 LOINC: EXAM DESCRIPTION: CHEST 2V REASON FOR STUDY: previous smoker quit 1 year ago crackling in lungs 6 weeks ago (resolved) cough 3 weeks lethargic/weakness 6 weeks chronic lymphedema hx of cervical and lymph cancer and radiation Duration: 6 weeks TECHNIQUE: There are 2 radiographic view(s) of the chest. COMPARISON: No prior. FINDINGS: LUNGS: Hyperinflation of the lungs indicative of emphysematous change. No confluent infiltrate or effusion. Costophrenic angles are sharp. HEART/MEDIASTINUM: Senescent change of the aorta. Otherwise, normal cardiomediastinal silhouette. LINES/TUBES: None. BONES: Moderate spondylosis thoracic spine. IMPRESSION: Emphysematous change with no acute infiltrate. THIS IS AN ELECTRONICALLY VERIFIED FINAL REPORT 01/17/2024 6:14 PM - Electronically signed by Howie Rogers M.D. MJ: JORJE Report ID: [id number] Reading Location: [id number] Social History Type Status Start Date End Date Code Code Syst em Sex Female Hospital Discharge Instructions Should you have any questions prior to discharge, please contact a member of your healthcare team. If you have left the hospital and have any questions, please contact your primary care physician. Reason For Referral No Data Found Plan of Treatment No Data Found Encounters Encounter Diagnosis Start Date Code Code Sys tem Anemia, unspecified 01/15/2024 SNOMED-C T Personal Care Team Section Performer Name Performer Role Active Date Inactive Da MICHAEL Jones PCP - Primary care physician 2023-01-30 2023-01-30 ROBEL CARCAMO PCP - Primary care physician Imaging Narrative Notes
[2024-09-23 01:54] LABS: Vitamin D 25 Hydroxy 29 ng/mL (30-100)
== END 2024-09-21 10:17 | disposition home or self-care (01) ==
LOC: CHSLAB 10:21
PROVIDERS: PCP Family Medicine; Visit Provider Family Medicine
DX: F32.1 Major depressive disorder, single episode, moderate (principal); D64.9 Anemia, unspecified; E55.9 Vitamin D deficiency, unspecified
CPT/HCPCS: 36415; 80053; 82306; 82607; 82746; 83540; 83550; 84443; 85025

== ENCOUNTER 2024-11-02 08:41 | Outpatient (CLI) | payer MEDICARE, SELFPAY ==
--- OUTSIDE RECORDS SUMMARY | 2024-11-02 08:46 | XMS_ITS ---
Author Organization Unknown Address [address] [place] [phone] Phone Care Team Providers Care Spa Host Name Role Phone CARLOS ALBERTO HUSTON PA-C Attending Unavailable Results CBC W/ DIFF - Collect Date/T milena: 01/15/2024 11:00 [facility] [id number] [place] [address], [phone] LOINC: 45254-2 Test Value Unit Reference Range Code Code System Flag WBC 12.6 10^3uL L=4.8 H=10.8 H RBC 4.14 10^6uL L=4.20 H=5.40 L HEMOGLOBIN 11.5 g/dL L=12.0 H=16.0 718-7 LOINC L HEMATOCRIT 37.4 VOL% L=37.0 H=47.0 4544-3 LOINC MCV 90.3 fL L=81.0 H=99.0 MCH 27.8 pg L=27.0 H=32.0 MCHC 30.7 g/dL L=32.0 H=36.0 L PLATELETS 248 10^3uL L=100 H=400 20352-4 LOINC RDW 13.9 % L=11.7 H=15.5 %GRAN 80.9 % L=40.0 H=70.0 08487-6 LOINC H %LYMPH 10.4 % L=20.0 H=45.0 736-9 LOINC L %MONO 6.5 % L=2.0 H=10.0 17353-0 LOINC %EOS 1.6 % L=0.0 H=6.0 713-8 LOINC %BASO 0.2 % L=0.0 H=3.0 706-2 LOINC #NEUT 10.2 10^3uL L=1.9 H=7.6 54660-9 LOINC H #LYMPH 1.3 10^3uL L=0.9 H=4.9 99759-4 LOINC #MONO 0.8 10^3uL L=0.1 H=0.9 49974-2 LOINC #EOS 0.2 10^3uL L=0.0 H=0.6 712-0 LOINC #BASO 0.03 10^3uL L=0.00 H=0.10 40496-8 LOINC #IM GRANS 0.1 10^3uL L=0.0 H=7.0 65896-4 LOINC %IM GRANS 0.4 % L=0.0 H=5.0 45822-4 LOINC %NRB 0.0 L=0.0 H=0.2 32816-5 LOINC #NRB 0.000 L=0.000 H=0.012 33665-2 LOINC MANUAL DIFF NOT INDICATED RBC MORPH NOT INDICATED COMPREHENSIVE METABOLIC PANE L - Collect Date/Time: 01/15/2024 11:00 [facility] [id number] [address] [place], [place], [id number] LOINC: 69087-7 Test Value Unit Reference Range Code Code [...] 2028-9 LOINC ANION GAP 15 L=10 H=20 18610-9 LOINC OSMOLALITY 289 mOs/kG L=280 H=296 85916-8 LOINC BUN/CREAT 16.7 3097-3 LOINC CALCIUM 9.7 mg/dL L=8.3 H=10.5 82394-9 LOINC AST 24 U/L L=15 H=46 1920-8 LOINC ALT 17 U/L L=9 H=72 1742-6 LOINC ALKALINE PHOS 96 U/L L=38 H=126 6768-6 LOINC TOTAL BILI 0.5 mg/dL L=0.2 H=1.3 1975-2 LOINC ALBUMIN 4.4 G/dL L=3.5 H=5.0 1751-7 LOINC TOTAL PROTEIN 8.5 g/L L=6.3 H=8.2 2885-2 LOINC H A/G RATIO 1.1 10895-0 LOINC AGE 73 15892-5 LOINC eGFR NON-AFR 47 ml/min eGFR AFR AMER 57 ml/min VITAMIN B-12 - Collect Date/ Time: 01/15/2024 11:00 [facility] [id number] [address] [place] [address], [phone] LOINC: 2132-9 Test Value Unit Reference Range Code Code System Flag VITAMIN B12 504 pq/mL L=239 H=931 FOLIC ACID (SERUM) - Collect Date/Time: 01/15/2024 11:00 [facility] [id number] [address] [place] [address], [id number] LOINC: 2284-8 Test Value Unit Reference Range Code Code System Flag FOLATE 19.6 ng/mL L=2.7 H=20.0 2284-8 LOINC IRON PANEL - Collect Date/Ti me: 01/15/2024 11:00 [facility] [id number] [address] [place] [address], [phone] LOINC: Test Value Unit Reference Range Code Code System Flag IRON 74 ug/dL L=37 H=170 2498-4 LOINC TIBC 354 ug/dL L=265 H=497 2500-7 LOINC %SATURATION 21 % L=13 H=45 2708-6 LOINC FERRITIN - Collect Date/Time : 01/15/2024 11:00 [facility] [id number] [place] [address], [id number] LOINC: 2276-4 Test Value Unit Reference Range Code Code System Flag FERRITIN 31.4 ng/mL L=11.1 H=264 2276-4 LOINC 25 HYDROXY VITAMIN D - Colle ct Date/Time: 01/15/2024 11:00 [facility] [id number] [address] [place] [address], [id number] LOINC: Test Value Unit Reference Range Code Code System Flag VITAMIN D 30.5 ng/ml L=30.0 H=100 51851-4 LOINC THYROID CASCADE PROFILE REF - Collect Date/Time: 01/15/2024 11:00 [facility] [id number] [address] [place] [address], [phone] LOINC: 57535-8 Test Value Unit Reference Range Code Code System Flag TSH 6.230 0.450-4.500 89787-4 LOINC H T4,Free (Direct) 0.95 0.82-1.77 3024-7 [...] Howie Rogers M.D. MJ: JORJE Report ID: [id number] Reading Location: [place] [address] Social History Type Status Start Date End [...] Name Performer Role Active Date Inactive Da IMCHAEL Jones PCP - Primary care physician 2023-01-30 2023-01-30 ROBEL CARCAMO PCP - Primary care physician Imaging Narrative Notes
--- OUTSIDE RECORDS SUMMARY | 2024-11-02 08:46 | XMS_ITS | Clinical Summary ---
Author Organization [facility] Address [address] [place] [address] Care Team Providers Care Human Resources Safety Manager Name Role Phone Slade Guerin MD Unavailable [phone] Mina Shaver MD Unavailable [phone] Jovita Puente Primary Care Provider [phone] Allergies Active Allergy Reactions Criticality Noted Date [...] 4 mg/actuation spray,non-aeroso l 0 3 Active foxfkseb-qry-lea ic acid-biotin 66.7-1,000 mcg tablet Take 1 [...] 23 Assessment & Plan (06/10/2023 11:16 AM OPERATIONS WELDER): Over the past few days she was [...] office in about 2 weeks. Sepsis 01/25/2018 Encounters Date Type Department Care Team Description 10/14/2024 3:15 PM CDT Office Visit [facility] [address] [place] [address] Medical Office [address] [place] [address] Twila Gomez, ZAHIRA Anemia, unspecified type (Primary Dx); Iron deficiency anemia due to chronic blood loss 10/14/2024 2:45 PM CDT Lab [facility] [address] [facility] [address] [place] [address] Iron deficiency anemia due to chronic blood loss; Anemia, unspecified type 10/13/2024 Telephone [facility] [address] [place] [address] Medical Office [address] [place] [address] Ailyn Chavarria, COLEENT from Last 3 Months Surgical History Surgery Date Site/Laterality Comments HYSTERECTOMY total PELVIC AND PARA-AORTIC LYMPH NODE DISSECTION 06/02/1992 - 06/01/1993 For cervical cancer. COLONOSCOPY JOINT REPLACEMENT 11/04/2022 Right hip BOWEL RESECTION 12/06/2022 with colostomy BLADDER REPAIR 12/06/2022 Medical History Medical History Date Comments Arthritis Cervical cancer (HCC) 1993 Status pos t surgical resection, lymph node [...] 12/02/2022 How often do you attend chur or rastafarian services? Never 12/02/2022 Do you belong to any clubs o r organizations such as methodist groups, unions, fraternal or athletic groups, or [...] place to sleep or slept in a longterm (including now)? No 12/02/2022 Personal Safety Answer Date Recorded Have you ever been in or are you currently in a harmful physical or emotional relationship or is someone making you feel afraid or unsafe? Denies 06/11/2023 Comments No Sex and Gender Information Value Date Recorded Sex Assigned at Not on file Legal Sex Female 6:16 PM OPERATIONS WELDER Gender Identity Not on file Sexual Orientation Not on file Obstetrics History Last Filed Vital Signs Vital Sign Reading Time Taken Comments Blood Pressure 143/95 10/14/2024 2:11 PM CDT Pulse 91 10/14/2024 2:11 PM CDT Temperature 36.2 C (97.1 F) 10/14/2024 2:11 PM CDT Respiratory Rate 20 10/14/2024 2:11 PM CDT Oxygen Saturation 97% 10/14/2024 2:11 PM CDT Inhaled Oxygen Concentration - - Weight 87.5 kg (193 lb) 10/14/2024 2:11 PM CDT Height 165.1 cm (5' 5) 04/13/2024 11:45 AM OPERATIONS WELDER Body Mass Index 32.12 04/13/2024 11:45 AM OPERATIONS WELDER Plan of Treatment Health Maintenance Due Date Last Done Comments Breast Cancer Screening-Mammogram 1950 Depression Screening 1950 Hepatitis C Screening 1950 Osteoporosis Screening-Bone Density Scan 1950 DTaP/Tdap/Td Vaccine (1 - Tdap) 1963 Hepatitis B Screening 1970 Pneumococcal vaccine 65+ (1 of 1 - PCV) 2002 Zoster Vaccine (1 of 2) 2002 Well Visit 65+ 2017 Fall Risk Assessment 12/15/2023 12/14/2022 Influenza Vaccine (Season Ended) 2025 Colon Cancer Screening-Colonoscopy 12/04/20322022 Colon Cancer Screening-CT Colonography Discontinued Colon Cancer Screening-DNA Stool Discontinued 12/05/19 Colon Cancer Screening-FIT Discontinued 12/04/2022 Colon Cancer Screening-Sigmoidoscopy Discontinued 09/2022 Medical Devices Implanted Type Area School Bus Mechanic Device Identifier Shelf Expiration Date Model / Serial / Lot [employer] Pax 54mm Sector Hip Shell Acetabular Gription Sterile Latex Free [id number] - [id number] Implanted:Qty: 1 on 11/04/2022 by Mina Shaver MD at [facility] Right: Hip [employer] [id number] 07/30/2032 [id number] / / [id number] [employer] Pax 6.5mm 35mm Acetabular Cancellous Screw Bone Sterile 1217-35-500 - [id number] Implanted:Qty: 1 on 11/04/2022 by Mina Shaver MD at [facility] Right: Hip [employer] [id number] 06/01/2032 1217-35-500 / / [id number] [employer] Pax 54mm 36mm Hip Neutral Liner Acetabular Altrx Sterile Latex Free [id number] - [id number] Implanted:Qty: 1 on 11/04/2022 by Mina Shaver MD at [facility] Right: Hip [employer] [id number] 07/01/2027 [id number] / / [id number] [employer] Actis 105mm Collar Hip 5 High Offset Stem Femoral [id number] - [id number] Implanted:Qty: 1 on 11/04/2022 by Mina Shaver MD at [facility] Right: Hip [employer] [id number] 06/01/2032 [id number] / / [id number] [employer] Articul/Branden 36mm Cementless Hip +5mm 05/15 Taper Head Femoral Latex Free [id number] - [id number] Implanted:Qty: 1 on 11/04/2022 by Mina Shaver MD at [facility] Right: Hip [employer] [id number] 07/31/2027 [id number] / / [id number] [employer] Contour Vl 6fr 22-30cm Large Inner Lumen Low Profile Bladder Js Latex Free [id number] - [id number] Implanted:Qty: 1 on 12/02/2022 by Kay Cunningham MD at [facility] Right: Urethra [employer] [id number] 08/22/2025 [id number] / / [id number] [employer] Contour Vl 6fr 22-30cm Large Inner Lumen Low Profile Bladder Js Latex Free [id number] - [id number] Implanted:Qty: 1 on 12/02/2022 by Kay Cunningham MD at [facility] Right: Urethra [employer] [id number] 10/08/2025 [id number] / / [id number] [employer] Contour 7fr 28cm Large Inner Lumen Low Profile Bladder Js Taper Latex Free 180-234 - [id number] Implanted:Qty: 1 on 06/11/2023 by Kay Cunningham MD at [facility] Right: Ureter [employer] 08/28/2025 [id number] / / [id number] Explanted Type Area School Bus Mechanic Device Identifier Shelf Expiration Date Model / Serial / Lot [employer] Contour 7fr 28cm Large Inner Lumen Low Profile Bladder Js Taper Latex Free 180-234 - [id number] Explanted:Qty: 1 on 12/02/2022 at [facility] Right: Urethra [employer] [id number] 09/25/2024 [id number] / / [id number] Procedures Procedure Name Priority Date/Time Associated Diagnosis Comments EGFR Routine 10/14/2024 2:00 PM CDT Anemia, unspecified type Iron deficiency anemia due to chronic blood loss DIFFERENTIAL AUTO Routine 10/14/2024 2:0 0 PM CDT Anemia, unspecified type Iron deficiency anemia due to chronic blood loss CBC WITH AUTO DIFFERENTIAL Routine 10/14/2024 2:00 PM CDT Anemia, unspecified type Iron deficiency anemia due to chronic blood loss COMPREHENSIVE METABOLIC PANEL Routine 10/14/2024 2:00 PM CDT Anemia, unspecified type Iron deficiency anemia due to chronic blood loss FERRITIN Routine 10/14/2024 2:00 PM CDT Iron deficiency anemia due to chronic blood loss IRON PROFILE W/ IBC Routine 10/14/2024 2 :00 PM CDT Iron deficiency anemia due to chronic blood loss COLONOSCOPY 12/04/2022 12:03 PM CDT from Last 3 Months or Most Recently Relevant to Health Maintenance Results * (ABNORMAL) eGFR (10/14/2024 2:00 PM CDT) eGFR 51(L) >=60 mL/min/1. 73 m2 Comment: Interpretive Data Reference Interval Normal >/= 90 mL/min/1.73m2 Mildly decreased* 60 - 89 mL/min/1.73m2 Mildly to moderately decreased 45 - 59 mL/min/1.73m2 Moderately to severely decreased 30 - 44 mL/min/1.73m2 Severely decreased 15 - 29 mL/min/1.73m2 Kidney Failure < 15 mL/min/1.73m2 *Relative to young adult level Estimated glomerular filtration rate is determined by the 2020 CKD-EPI equation recommended by the National Kidney Foundation (A Unifying Approach to GFR Estimation: Recommendations of the NKF-ASK Task Force on Reassessing the Inclusion of Race in Diagnosing Kidney Disease, JASN 2020). The CKD-EPI equation should not be used for patients with unstable renal function and has not been validated in children and those over 70. Current interpretive data was last reviewed 2021. Testing performed by: [facility] [address] [facility], [place], [address] Blood 10/14/2024 2:00 PM CDT 10/14/2024 2:30 PM CDT us Artem Sinha MD LAB BLOOD ORDERABLES Nabila guadalupe Result [facility] [address] [facility] Department [place] [address] * Differential, auto (10/14/2024 2:00 PM CDT) Neutrophil abs 5.82 1.50 - 6.50 K/cumm [facility] ([place]) Comment:Testing performed by : [facility] [address], Medical Office [facility] [address] [facility] [address], [place] [address] Imm gran abs 0.01 0.00 - 0.10 K/cumm [facility] ([place]) Comment:Testing performed by : [facility] [address], Medical Office [facility] [address], [place] [address] Lymphocyte abs 1.64 0.80 - 3.30 K/cumm [facility] ([place]) Comment:Testing performed by : [facility] [address], Medical Office [facility] [address] [facility] [address], [place] [address] Monocyte abs 0.57 0.20 - 0.80 K/cumm [facility] ([place]) Comment:Testing performed by : [facility] [address], Medical Office [facility] [address], [place] [address] Eosinophil abs 0.19 0.00 - 0.50 K/cumm [facility] ([place]) Comment:Testing performed by : [facility] [address], Medical Office [facility] [address] [facility] [address], [place] [address] Basophil abs 0.05 0.00 - 0.10 K/cumm [facility] ([place]) Comment:Testing performed by : [facility] [address], Medical Office [facility] [address], [place] [address] Neutrophil pct 70.3 % [facility] ([place]) Comment: Interpretive Data Percent cell count reference ranges are not reported, since discordance with absolute values may lead to misinterpretation of CBC data. Current Interpretive Data was last revised on 2022. Testing performed by: [facility] [address], Medical Office [address], [place] [address] Imm gran pct 0.1 % [facility] ([place]) Comment: Interpretive Data Percent cell count reference ranges are not reported, since discordance with absolute values may lead to misinterpretation of CBC data. Current Interpretive Data was last revised on 2022. Testing performed by: [facility] [address], Medical Office [address], [place] [address] Lymphocyte pct 19.8 % [facility] ([place]) Comment: Interpretive Data Percent cell count reference ranges are not reported, since discordance with absolute values may lead to misinterpretation of CBC data. Current Interpretive Data was last revised on 2022. Testing performed by: [facility] [address], Medical Office [address], [place] [address] Monocyte pct 6.9 % [facility] ([place]) Comment: Interpretive Data Percent cell count reference ranges are not reported, since discordance with absolute values may lead to misinterpretation of CBC data. Current Interpretive Data was last revised on 2022. Testing performed by: [facility] [address], Medical Office [address], [place] [address] Eosinophil pct 2.3 % [facility] ([place] Comment: Interpretive Data Percent cell count reference ranges are not reported, since discordance with absolute values may lead to misinterpretation of CBC data. Current Interpretive Data was last revised on 2022. Testing performed by: [facility] [address], Medical Office [address], [place] [address] Basophil pct 0.6 % [facility] ([place]) Comment: Interpretive Data Percent cell count reference ranges are not reported, since discordance with absolute values may lead to misinterpretation of CBC data. Current Interpretive Data was last revised on 2022. Testing performed by: [facility] [address], Medical Office [address], [place] [address] Blood 10/14/2024 2:00 PM CDT 10/14/2024 2:04 PM CDT Artem Sinha MD LAB BLOOD ORDERABLES Nabila l Result Performing Organization Address [facility] Co de Phone Number [facility] ([place] [address] [facility] Department [place] [address] * Iron profile w/ IBC (10/14/2024 2:00 PM CDT) Iron 89 35 - 145 mcg/dL Comment:Testing performed by : [facility], [place], [address] TIBC 348 250 - 400 mcg/dL [facility] ([place]) Comment:Testing performed by : [place], [address] Transferrin saturation 26 20 - 50 % [facility] ([place]) Comment:Testing performed by : [place], [address] Blood 10/14/2024 2:00 PM CDT 10/14/2024 2:30 PM CDT Artem Sinha MD LAB BLOOD ORDERABLES Nabila l Result Performing Organization Address City/[facility]/ZIP Co de Phone Number [facility] ([place]) [address] [facility] Department [place] [address] * CBC with auto differential (10/14/2024 2:00 PM CDT) WBC 8.28 3.80 - 9.90 K/cumm [facility] ([place]) Comment:Testing performed by : [facility] [address], Medical Office [address], [place] [address] Hgb 12.6 11.9 - 15.5 g/dL [facility] ([place]) Comment:Testing performed by : [facility] [address], Medical Office [address], [place] [address] Hct 38.8 35.6 - 45.5 % [facility] ([place]) Comment:Testing performed by : [facility] [address], Medical Office [facility] [address] [facility] [address], [place] [address] Plt 233 150 - 400 K/cumm [facility] ([place]) Comment:Testing performed by : [facility] [address], Medical Office [facility] [address], [place] [address] MPV 9.6 9.1 - 12.3 fL [facility] ([place]) Comment:Testing performed by : [facility] [address], Medical Office [facility] [address], [place] [address] RBC 4.39 3.90 - 5.20 M/cumm [facility] ([place]) Comment:Testing performed by : [facility] [address], Medical Office [facility] [address], [place] [address] MCV 88.4 81.3 - 96.4 fL [facility] ([place]) Comment:Testing performed by : [facility] [address], Medical Office [facility] [address] [facility] [address], [place] [address] MCH 28.7 27.1 - 33.3 pg [facility] ([place]) Comment:Testing performed by : [facility] [address], Medical Office [facility] [address], [place] [address] MCHC 32.5 32.3 - 35.7 g/dL [facility] ([place]) Comment:Testing performed by : [facility] [address], Medical Office [facility] [address], [place] [address] RDW CV 13.2 11.1 - 14.9 % [facility] ([place]) Comment:Testing performed by : [facility] [address], Medical Office [facility] [address] [facility] [address], [place] [address] RDW SD 43.1 35.7 - 48.1 fL [facility] ([place]) Comment:Testing performed by : [facility] [address], Medical Office [facility] [address] [facility] [address], [place] [address] Blood 10/14/2024 2:00 PM CDT 10/14/2024 2:04 PM CDT us Artem Sinha MD LAB BLOOD ORDERABLES Nabila guadalupe Result [facility] ([place]) [address] [facility] Department [place] [address] * Ferritin (10/14/2024 2:00 PM CDT) Pathologist [facility] Ferritin 76 15 - 150 ng/mL Comment:Testing performed by : [facility], [place], [address] Blood 10/14/2024 2:00 PM CDT 10/14/2024 2:30 PM CDT us Artem Sinha MD LAB BLOOD ORDERABLES Nabila l Result [facility] ([place] [address] [facility] Department [place] [address] * (ABNORMAL) Comprehensive metabolic panel (10/14/2024 2:00 PM CDT) Pathologist [facility] Sodium 136 135 - 145 mmol/L Comment:Testing performed by : [place], [address] Potassium, pl 3.8 3.3 - 4.9 mmol/L [facility] ([place]) Comment:Testing performed by : [place], [address] Chloride 100 97 - 110 mmol/L [facility] ([place]) Comment:Testing performed by : [place], [address] CO2 21(L) 22 - 32 mmol/L [facility] ([place]) Comment:Testing performed by : [place], [address] Anion gap 15 2 - 15 mmol/L [facility] ([place]) Comment:Testing performed by : [place], [address] BUN 13 6 - 25 mg/dL [facility] ([place]) Comment:Testing performed by : [place], [address] Creatinine 1.14(H) 0.60 - 1.10 mg/dL [facility] ([place]) Comment:Testing performed by : [place], [address] Glucose 106 70 - 199 mg/dL [facility] ([place]) Comment: Interpretive Data Fasting glucose >/= 126 mg/dl is diagnostic for diabetes. Fasting is defined as no caloric intake for at least 8 hours. Fasting glucose between 100 mg/dl to 125 mg/dl is diagnostic of prediabetes. In a patient with classic symptoms of hyperglycemia or hyperglycemic crisis, a random glucose >/= 200 mg/dl is diagnostic for diabetes. In the absence of unequivocal hyperglycemia, results should be confirmed by repeat testing. The classification and Diagnosis of Diabetes Diabetes Care 2021; 46: S19-S40. Current interpretive data was last revised 2022. Testing performed by: [place], [address] Calcium 9.6 8.5 - 10.3 mg/dL [facility] ([place]) Comment:Testing performed by : [place], [address] Bilirubin, total 0.3 0.1 - 1.2 mg/dL [facility] ([place]) Comment:Testing performed by : [facility], [place], [address] Protein, pl 8.2 6.5 - 8.5 g/dL [facility] ([place]) Comment:Testing performed by : [facility], [place], [address] Albumin 4.0 3.5 - 5.0 g/dL [facility] ([place]) Comment:Testing performed by : [facility], [place], [address] Alk phos 108 40 - 130 Units/L [facility] ([place]) Comment:Testing performed by : [facility], [place], [address] ALT 11 7 - 45 Units/L [facility] ([place]) Comment:Testing performed by : [place], [address] AST 19 10 - 45 Units/L [facility] ([place]) Comment: Slightly Hemolyzed Specimen Testing performed by: [place], [address] Blood 10/14/2024 2:00 PM CDT 10/14/2024 2:30 PM CDT us Artem Sinha MD LAB BLOOD ORDERABLES Nabila guadalupe Result [facility] Department [place] [address] * COLONOSCOPY (12/04/2022 12:03 PM CDT) Anatomical Region Laterality Modality Other Narrative Procedure Note Edward Hood MD - 12/04/2022 12:[address] [facility] Patient Name: Sandy Saenz Procedure Date: 12/04/2022 12:03 PM Date of : 1950 Admit Type: Inpatient Age: 72 Gender: Female Attending MD: Edward Hood M.D. Room: [facility] 1 Note Status: Finalized [...] passed under direct vision. The Endoscope [id number] was introduced through the anus and advanced to the the transverse colon. The scope was passed under direct vision. The Infrared hemorrhoid bleacher groundwood pulp [id number] was introduced through the and advanced tothe. [...] 12:03 PM Procedure Code(s): --- Professional --- 19084, Colonoscopy, flexible; diagnostic, including collection of specimen(s) by brushing or washing, when performed (separateprocedure) Diagnosis Code(s): --- Professional --- R93.3, Abnormal findings on diagnostic imaging of other parts of digestive tract CPT copyright 2020 [employer]. All rights reserved. The codes documented in this report are preliminary and upon social scientist reviewmay be revised to meet current compliance requirements. Recognized by the [employer] for promoting quality in endoscopy Edward Hood MD ENDOSCOPY PROCEDURES Final Result from Last 3 Months or Most Recently Relevant to Health Maintenance Insurance MEDICARE [facility] MEDICARE BLUE CROSS MEDICARE SUPPLEMENT MEDICARE [facility] MEDICARE SUPPLEMENT Advance Directives For more information, please contact: [phone] * Full Code (Latest Code Status on [...] 5:33 AM 09/01/2017 10:32 PM Care Teams Human Resources Safety Manager Relationship Specialty Start Date End Date Jovita Puente PA [address] [place] [address] PCP - General Emergency Medicine 12/01/22 Slade Guerin MD Consulting Physician Infectious Diseases 09/01/17 Mina Shaver MD [address] [place] [address] DR [address] [place] [address] Surgeon Orthopedic Surgery 11/04/22
--- OUTSIDE RECORDS SUMMARY | 2024-11-02 08:47 | XMS_ITS | Referral Summary ---
Author Organization [facility] Address [address] [place] [address] Care Team Providers Care Turbine Engineer Name Role Phone Slade Guerin MD Unavailable [phone] Mina Shaver MD Unavailable [phone] Jovita Puente Primary Care Provider [phone] Encounters Date Type Department Care Team Description 10/14/2024 2:45 PM CDT Lab [facility] [address] [facility] [address] [place] [address] Iron deficiency anemia due to chronic blood loss; Anemia, unspecified type 10/14/2024 3:15 PM CDT Office Visit [facility] Oncology [address] [place] [address] Medical Office [address] [place] [id number] Twila Gomez, ZAHIRA Anemia, unspecified type (Primary Dx); Iron deficiency anemia due to chronic blood loss 10/13/2024 Telephone [facility] Oncology [address] [place] [address] Medical Office [address] [place] [phone] Ailyn Chavarria, COLEENT from Last 3 Months Allergies Active Allergy Reactions Criticality Noted Date [...] 4 mg/actuation spray,non-aeroso l 0 3 Active xbljciyf-qpz-jcs ic acid-biotin 66.7-1,000 mcg tablet Take 1 [...] 23 Assessment & Plan (06/10/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 Never 12/02/2022 Do you belong to any clubs o r organizations such as jew groups, unions, fraternal or athletic groups, or [...] money to buy more. Never true 07/22/19 Within the past 12 months, t he [...] place to sleep or slept in a senior care (including now)? No 12/02/2022 Personal Safety Answer Date Recorded Have you ever been in or are you currently in a harmful physical or emotional relationship or is someone making you feel afraid or unsafe? 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 SHOP SUPERVISOR Gender Identity Not on file Sexual Orientation [...] 165.1 cm (5' 5) 04/13/2024 11:45 AM ROLL SHOP SUPERVISOR Body Mass Index 32.12 04/13/2024 11:45 AM ROLL SHOP SUPERVISOR Plan of Treatment Not on file Medical Devices Implanted Type Area Manager Beverage Device Identifier Shelf Expiration Date Model / Serial / Lot [employer] [place] 54mm Sector Hip Shell Acetabular Gription Sterile Latex Free [id number] - [id number] Implanted:Qty: 1 on 11/04/2022 by Mina Shaver MD at [facility] Right: Hip [employer] [id number] 07/30/2032 [id number] / / [id number] [employer] [place] 6.5mm 35mm Acetabular Cancellous Screw Bone Sterile 1217-35-500 - [id number] Implanted:Qty: 1 on 11/04/2022 by Mina Shaver MD at [facility] Right: Hip [employer] [id number] 06/01/2032 1217-35-500 / / [id number] [employer] Spring[place] 54mm 36mm Hip Neutral Liner Acetabular Altrx Sterile Latex Free [id number] - [id number] Implanted:Qty: 1 on 11/04/2022 by Mina Shaver MD at [facility] Right: Hip [employer] [id number] 07/01/2027 [id number] / / [id number] [employer] Actis 105mm Collar Hip 5 High Offset Stem Femoral [id number] - [id number] Implanted:Qty: 1 on 11/04/2022 by Mina Shaver MD at [facility] Right: Hip [employer] [id number] 06/01/2032 [id number] / / [id number] [employer] Articul/Branden 36mm Cementless Hip +5mm /14 Taper Head Femoral Latex Free [id number] - [id number] Implanted:Qty: 1 on 11/04/2022 by Mina Shaver MD at [facility] Right: Hip [employer] [id number] 07/31/2027 [id number] / / [id number] [employer] Francisco Contour Vl 6fr 22-30cm Large Inner Lumen Low Profile Bladder Js Latex Free [id number] - [id number] Implanted:Qty: 1 on 12/02/2022 by Kay Cunningham MD at [facility] Right: Urethra [employer] Francisco [id number] 08/22/2025 [id number] / / [id number] [employer] Francisco Contour Vl 6fr 22-30cm Large Inner Lumen Low Profile Bladder Js Latex Free [id number] - [id number] Implanted:Qty: 1 on 12/02/2022 by Kay Cunningham MD at [facility] Right: Urethra [employer] Francisco [id number] 10/08/2025 [id number] / / [id number] [employer] Francisco Contour 7fr 28cm Large Inner Lumen Low Profile Bladder Js Taper Latex Free 180-234 - [id number] Implanted:Qty: 1 on 06/11/2023 by Kay Cunningham MD at [facility] Right: Ureter [employer] Francisco 08/28/2025 [id number] / / [id number] Explanted Type Area Manager Beverage Device Identifier Shelf Expiration Date Model / Serial / Lot [employer]ful [employer] Francisco Contour 7fr 28cm Large Inner Lumen Low Profile Bladder Js Taper Latex Free 180-234 - [id number] Explanted:Qty: 1 on 12/02/2022 at [facility] Right: Urethra [employer] Francisco [id number] 09/25/2024 [id number] / / [id number] Procedures Procedure Name Priority Date/Time Associated Diagnosis [...] was last reviewed 2021. Testing performed by: [facility], [address] [facility], [place], [address] Blood 10/14/2024 2:00 PM CDT 10/14/2024 2:30 PM CDT us Artem Sinha MD LAB BLOOD ORDERABLES Nabila guadalupe Result [facility] ([place]) [address] [facility] Department [place] [address] * Differential, auto (10/14/2024 2:00 PM CDT) Neutrophil abs 5.82 1.50 - 6.50 K/cumm [facility] ([place]) Comment:Testing performed by : [facility] [address], Medical Office [facility] [address], [place] [address] Imm gran abs 0.01 0.00 - 0.10 K/cumm [facility] ([place]) Comment:Testing performed by : [facility] [address], Medical Office [facility] [address], [place] [address] Lymphocyte abs 1.64 0.80 - 3.30 K/cumm [facility] ([place]) Comment:Testing performed by : [facility] [address], Medical Office [facility] [address], [place] [address] Monocyte abs 0.57 0.20 - 0.80 K/cumm [facility] ([place]) Comment:Testing performed by : [facility] [address], Medical Office [facility] [address], [place] [address] Eosinophil abs 0.19 0.00 - 0.50 K/cumm [facility] ([place]) Comment:Testing performed by : [facility] [address], Medical Office [facility] [address], [place] [address] Basophil abs 0.05 0.00 - 0.10 K/cumm [facility] ([place]) Comment:Testing performed by : [facility] [address], Medical Office [facility] [address], [place] [address] Neutrophil pct 70.3 % [facility] ([place]) Comment: Interpretive Data Percent cell count reference ranges are not reported, since discordance with absolute values may lead to misinterpretation of CBC data. Current Interpretive Data was last revised on 2022. Testing performed by: [facility] [address], Medical Office [facility] [address], [place] [address] Imm gran pct 0.1 % [facility] ([place]) Comment: Interpretive Data Percent cell count reference ranges are not reported, since discordance with absolute values may lead to misinterpretation of CBC data. Current Interpretive Data was last revised on 2022. Testing performed by: [facility] [address], Medical Office [facility] B [facility] [address], [place] [address] Lymphocyte pct 19.8 % [facility] ([place]) Comment: Interpretive Data Percent cell count reference ranges are not reported, since discordance with absolute values may lead to misinterpretation of CBC data. Current Interpretive Data was last revised on 2022. Testing performed by: [facility] [address], Medical Office [facility] B [facility] [address], [place] [address] Monocyte pct 6.9 % [facility] ([place]) Comment: Interpretive Data Percent cell count reference ranges are not reported, since discordance with absolute values may lead to misinterpretation of CBC data. Current Interpretive Data was last revised on 2022. Testing performed by: [facility] [address], Medical Office [facility] [address], [place] [address] Eosinophil pct 2.3 % [facility] ([place]) Comment: Interpretive Data Percent cell count reference ranges are not reported, since discordance with absolute values may lead to misinterpretation of CBC data. Current Interpretive Data was last revised on 2022. Testing performed by: [facility] [address], Medical Office [address], [place] [address] Basophil pct 0.6 % [facility] ([place]) Comment: Interpretive Data Percent cell count reference ranges are not reported, since discordance with absolute values may lead to misinterpretation of CBC data. Current Interpretive Data was last revised on 2022. Testing performed by: [facility] [address], Medical Office [address], [place] [address] Blood 10/14/2024 2:00 PM CDT 10/14/2024 2:04 PM CDT us Artem Sinha MD LAB BLOOD ORDERABLES Nabila l Result Performing Organization Address [facility]/ZIP Co de Phone Number [facility] ([place]) [address] [facility] Department [place] [address] * Iron profile w/ IBC (10/14/2024 2:00 PM CDT) Iron 89 35 - 145 mcg/dL Comment:Testing performed by : [place], [address] TIBC 348 250 - 400 mcg/dL [facility] ([place]) Comment:Testing performed by : [facility], [place], [address] Transferrin saturation 26 20 - 50 % [facility] ([place]) Comment:Testing performed by : [place], [address] Blood 10/14/2024 2:00 PM CDT 10/14/2024 2:30 PM CDT us Artem Sinha MD LAB BLOOD ORDERABLES Nabila l Result [facility] ([place]) [address] [facility] Department [place] [address] * CBC with auto differential (10/14/2024 2:00 PM CDT) WBC 8.28 3.80 - 9.90 K/cumm [facility] ([place]) Comment:Testing performed by : [facility] [address], Medical Office [address], [place] [address] Hgb 12.6 11.9 - 15.5 g/dL [facility] ([place]) Comment:Testing performed by : [facility] [address], Medical Office [address], [place] [address] Hct 38.8 35.6 - 45.5 % [facility] ([place]) Comment:Testing performed by : [facility] [address], Medical Office [address], [place] [address] Plt 233 150 - 400 K/cumm [facility] ([place]) Comment:Testing performed by : [facility] [address], Medical Office [address], [place] [address] MPV 9.6 9.1 - 12.3 fL [facility] ([place]) Comment:Testing performed by : [facility] [address], Medical Office [facility] [address], [place] [address] RBC 4.39 3.90 - 5.20 M/cumm [facility] ([place]) Comment:Testing performed by : [facility] [address], Medical Office [facility] [address], [place] [address] MCV 88.4 81.3 - 96.4 fL [facility] ([place]) Comment:Testing performed by : [facility] [address], Medical Office [facility] [address], [place] [address] MCH 28.7 27.1 - 33.3 pg [facility] ([place]) Comment:Testing performed by : [facility] [address], Medical Office [address], [place] [address] MCHC 32.5 32.3 - 35.7 g/dL [facility] ([place]) Comment:Testing performed by : [facility] [address], Medical Office [address], [place] [address] RDW CV 13.2 11.1 - 14.9 % [facility] ([place]) Comment:Testing performed by : [facility] [address], Medical Office [address], [place] [address] RDW SD 43.1 35.7 - 48.1 fL [facility] ([place]) Comment:Testing performed by : [facility] [address], [address], Medical Office [facility] B [facility] [address], [place] [address] Blood 10/14/2024 2:00 PM CDT 10/14/2024 2:04 PM CDT us Artem Sinha MD LAB BLOOD ORDERABLES Nabila l Result [facility] ([place]) [address] [facility] Department [place] [address] * Ferritin (10/14/2024 2:00 PM CDT) Ferritin 76 15 - 150 ng/mL Comment:Testing performed by : [place], [address] Blood 10/14/2024 2:00 PM CDT 10/14/2024 2:30 PM CDT us Artem Sinha MD LAB BLOOD ORDERABLES Nabila l Result [facility] ([place]) [address] [facility] Department [place] [address] * (ABNORMAL) Comprehensive metabolic panel (10/14/2024 2:00 PM CDT) Sodium 136 135 - 145 mmol/L Comment:Testing performed by : [place], [address] Potassium, pl 3.8 3.3 - 4.9 mmol/L [facility] ([place]) Comment:Testing performed by : [place], [address] Chloride 100 97 - 110 mmol/L [facility] ([place]) Comment:Testing performed by : [place], [address] CO2 21(L) 22 - 32 mmol/L [facility] ([place]) Comment:Testing performed by : [facility], [place], [address] Anion gap 15 2 - 15 mmol/L [facility] ([place]) Comment:Testing performed by : [facility], [facility], [place], [address] BUN 13 6 - 25 mg/dL [facility] ([place]) Comment:Testing performed by : [facility], [place], [address] Creatinine 1.14(H) 0.60 - 1.10 mg/dL [facility] ([place]) Comment:Testing performed by : [facility], [place], [address] Glucose 106 70 - 199 mg/dL [facility] ([place]) Comment: Interpretive Data Fasting glucose >/= 126 [...] was last revised 2022. Testing performed by: [place], [address] Calcium 9.6 8.5 - 10.3 mg/dL [facility] ([place]) Comment:Testing performed by : [facility], [place], [address] Bilirubin, total 0.3 0.1 - 1.2 mg/dL [facility] ([place]) Comment:Testing performed by : [facility], [place], [address] Protein, pl 8.2 6.5 - 8.5 g/dL [facility] ([place]) Comment:Testing performed by : [facility], [place], [address] Albumin 4.0 3.5 - 5.0 g/dL [facility] ([place]) Comment:Testing performed by : [facility], [place], [address] Alk phos 108 40 - 130 Units/L [facility] ([place]) Comment:Testing performed by : [facility], [place], [address] ALT 11 7 - 45 Units/L [facility] ([place]) Comment:Testing performed by : [facility], [facility], [place], [address] AST 19 10 - 45 Units/L [facility] ([place]) Comment: Slightly Hemolyzed Specimen Testing performed by: [facility], [facility], [place], [address] Blood 10/14/2024 2:00 PM CDT 10/14/2024 2:30 PM CDT us Artem Sinha MD LAB BLOOD ORDERABLES Nabila guadalupe Result [facility] ([place]) [address] [place] [address] Department [place] [address] * COLONOSCOPY (12/04/2022 12:03 PM CDT) Anatomical Region Laterality Modality Other Narrative Procedure Note Edward Hood MD - 12/04/2022 12:03 PM CDT [facility] Patient Name: Sandy Saenz Procedure Date: 12/04/2022 12:03 PM Date of : 1950 Admit Type: Inpatient Age: 72 Gender: Female Attending MD: Edward Hood M.D. Room: [facility] ENDOSCOPY ROOM 1 Note Status: Finalized [...] passed under direct vision. The Endoscope [id number] was introduced through the anus and advanced to the the transverse colon. The scope was passed under direct vision. The Infrared hemorrhoid tint layer [id number] was introduced through the and advanced tothe. [...] 12:03 PM Procedure Code(s): --- Professional --- 79694, Colonoscopy, flexible; diagnostic, including collection of specimen(s) by brushing or washing, when performed (separateprocedure) Diagnosis Code(s): --- Professional --- R93.3, Abnormal findings on diagnostic imaging of other parts of digestive tract CPT copyright 2020 [employer]. All rights reserved. The codes documented in this report are preliminary and upon sales representative business courses reviewmay be revised to meet current compliance requirements. Recognized by the [place] [employer] for promoting quality in endoscopy Edward Hood MD ENDOSCOPY PROCEDURES Final Result from Last 3 Months or Most Recently Relevant to Health Maintenance Insurance MEDICARE [facility] MEDICARE [facility] MEDICARE SUPPLEMENT MEDICARE [facility] MEDICARE SUPPLEMENT Advance Directives For more information, please contact: [phone] * Full Code (Latest Code Status on [...] 5:33 AM 09/01/2017 10:32 PM Care Teams Turbine Engineer Relationship Specialty Start Date End Date Jovita Puente PA [address] [place] [address] PCP - General Emergency Medicine 12/01/22 Slade Guerin MD Consulting Physician Infectious Diseases 09/01/17 Mina Shaver MD [address] [place] [address] [place] [address] Surgeon Orthopedic Surgery 11/04/22
--- OUTSIDE RECORDS SUMMARY | 2024-11-02 08:47 | XMS_ITS | Encounter Summary ---
Author Organization [facility] Address [address] [place] [address] Phone Care Team Providers Care Cooperative Education Director Name Role Phone No, Physician Primary Care Provider [phone] Slade Guerin MD Unavailable [phone] Mina Shaver MD Unavailable [phone] Jovita Puente Primary Care Provider [phone] Encounter Details Date Type Department Care Team (Late st Contact Info) Description 09/10/2017 Orders Only [facility] [address] [place] [address] Slade Guerin MD [address] [address] Social History Tobacco Use Types Packs/Day Years Used Date Smoking Tobacco: Some Days Smokeless Tobacco: Never Alcohol Use Standard Drinks/Week Comments No 0 (1 standard drink = 0.6 oz pur e alcohol) Comments No Sex and Gender Information Value Date Recorded Sex Assigned at Not on file Legal Sex Female 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
[2024-11-02 09:24] LABS: Alanine Aminotransferase 15 U/L (6-35); Albumin Level 3.7 g/dL (3.5-5.1); Alkaline Phosphatase 100 U/L (38-126); Anion Gap 6 mmol/L (4-12); Aspartate Amino Transferase 24 U/L (14-36); Bilirubin,Total 0.4 mg/dL (0.2-1.3); Blood Urea Nitrogen 18 mg/dL (7-17); Carbon Dioxide 24 mmol/L (22-30); Chloride 110 mmol/L (98-107); Cholesterol 196 mg/dL (0-200); Estimated Glomerular Filt Rate 43; Glucose 100 mg/dL (65-110); HDL Direct 75 mg/dL; LDL Cholesterol Calculated 105 mg/dL (<130); Osmolality Calculated 291 mOsm/kg (285-295); Sodium 140 mmol/L (137-145); Total Protein 6.9 g/dL (6.3-8.2); Triglycerides 81 mg/dL (<150)
[2024-11-02 09:41] LABS: Free T3 4.03 pg/mL (2.18-3.98)
[2024-11-02 12:19] LABS: Free T4 Free Thyroxine Reflex 1.07 ng/dL (0.78-2.19)
== END 2024-11-02 08:42 | disposition home or self-care (01) ==
LOC: CHSLAB 08:43
PROVIDERS: PCP Family Medicine; Visit Provider Family Medicine
DX: E78.5 Hyperlipidemia, unspecified (principal)
CPT/HCPCS: 36415; 80053; 80061; 84439; 84443; 84480; 84481

== ENCOUNTER 2024-11-19 16:38 | Outpatient (CLI) | payer MEDICARE, SELFPAY ==
--- NOTE | ~2024-11-19 | XR_ITS ---
CHEST RADIOGRAPH, PA AND LATERAL CLINICAL HISTORY: Acute bronchitis/weakness x6 months . COMPARISON: None available TECHNIQUE: PA and lateral views of the chest. FINDINGS Moderate hiatal hernia with an air-fluid level. The remainder of the cardiomediastinal silhouette is otherwise unremarkable. Increased interstitial markings are identified bilaterally, findings suggesting mild pulmonary vascul ar congestion. The lungs are otherwise clear. IMPRESSION: Mild pulmonary vascular congestion without focal infiltrate or effusion. Reviewed, dictated and finalized at location A.
[2024-11-19 17:00] LABS: Basophils Absolute Auto 0.03 K/mm3 (0.00-0.10); Basophils Percent Auto 0.3 % (0.0-1.0); Eosinophils Absolute Auto 0.29 K/mm3 (0.02-0.50); Eosinophils Percent Auto 2.4 % (1.0-6.0); Hematocrit 32.8 % (35.0-42.0); Hemoglobin 10.1 g/dL (11.7-13.8); Immature Granulocyte Absolute 0.06 K/mm3 (0.00-0.00); Immature Granulocyte Percent A 0.5 % (0.0-0.0); Lymphocytes Percent Auto 12.6 % (18.0-42.0); Mean Corpuscular HGB Conc 30.8 g/dL (32-36); Mean Corpuscular Hemoglobin 28.1 pg (27.0-31.0); Mean Corpuscular Volume 91.1 fL (78.0-102.0); Mean Platelet Volume 9.8 fl (9.2-11.8); Monocytes Absolute Auto 0.71 K/mm3 (0.10-0.90); Neutrophils Absolute Auto 9.28 K/mm3 (1.70-7.20); Neutrophils Percent Auto 78.2 % (50.0-70.0); Platelet Count Result 238 K/mm3 (150-420); Red Cell Distribution Width 13.8 % (11.6-14.4); White Blood Count 11.9 K/mm3 (4.8-10.8)
[2024-11-19 18:13] LABS: Alanine Aminotransferase 14 U/L (6-35); Albumin Level 3.2 g/dL (3.5-5.1); Alkaline Phosphatase 94 U/L (38-126); Anion Gap 6 mmol/L (4-12); Aspartate Amino Transferase 24 U/L (14-36); Bilirubin,Total 0.6 mg/dL (0.2-1.3); Blood Urea Nitrogen 22 mg/dL (7-17); Calcium 8.6 mg/dL (8.4-10.2); Carbon Dioxide 23 mmol/L (22-30); Chloride 109 mmol/L (98-107); Estimated Glomerular Filt Rate 40; Glucose 104 mg/dL (65-110); Magnesium 1.5 mg/dL (1.6-2.3); Osmolality Calculated 289 mOsm/kg (285-295); Potassium 3.9 mmol/L (3.4-5.0); Sodium 138 mmol/L (137-145); Total Protein 6.3 g/dL (6.3-8.2)
[2024-11-19 18:21] LABS: NT Pro B Type Natriuretic Pept 896 pg/mL (19.9-100)
[2024-11-24 16:38] LABS: Adenovirus DNA Not Detected (Not Detected); Chlamydophila pneumoniae Not Detected (Not Detected); Coronavirus 229E Not Detected (Not Detected); Coronavirus HKU1 Not Detected (Not Detected); Coronavirus NL63 Not Detected (Not Detected); Coronavirus OC43 Not Detected (Not Detected); Human Metapneumovirus Detected (Not Detected); Human Parainfluenza Virus 1 Not Detected (Not Detected); Human Parainfluenza Virus 2 Not Detected (Not Detected); Human Parainfluenza Virus 3 Not Detected (Not Detected); Human Parainfluenza Virus 4 Not Detected (Not Detected); Human RSV B Not Detected (Not Detected); Influenza A Not Detected (Not Detected); Influenza B Not Detected (Not Detected); Mycoplasma pneumoniae Not Detected (Not Detected); Rhinovirus/Enterovirus Not Detected (Not Detected)
== END 2024-11-19 16:39 | disposition home or self-care (01) ==
PROVIDERS: PCP Family Medicine; Visit Provider Family Medicine
DX: R60.0 Localized edema (principal); J20.9 Acute bronchitis, unspecified; I50.9 Heart failure, unspecified
CPT/HCPCS: 71046; 80053; 83735; 83880; 85025; 87633

== ENCOUNTER 2024-11-24 14:38 | Outpatient (CLI) | payer MEDICARE, SELFPAY ==
[2024-11-24 15:10] LABS: Alanine Aminotransferase 27 U/L (6-35); Albumin Level 3.6 g/dL (3.5-5.1); Alkaline Phosphatase 111 U/L (38-126); Anion Gap 8 mmol/L (4-12); Aspartate Amino Transferase 35 U/L (14-36); Bilirubin,Total 0.4 mg/dL (0.2-1.3); Blood Urea Nitrogen 18 mg/dL (7-17); Carbon Dioxide 24 mmol/L (22-30); Chloride 108 mmol/L (98-107); Estimated Glomerular Filt Rate 43; Glucose 126 mg/dL (65-110); Osmolality Calculated 293 mOsm/kg (285-295); Potassium 3.7 mmol/L (3.4-5.0); Sodium 140 mmol/L (137-145); Total Protein 6.9 g/dL (6.3-8.2)
== END 2024-11-24 14:39 | disposition home or self-care (01) ==
PROVIDERS: PCP Family Medicine; Visit Provider Family Medicine
DX: I50.9 Heart failure, unspecified (principal)
CPT/HCPCS: 36415; 80053